=== PATIENT | female | born 1930 | race Caucasian/White ===

== ENCOUNTER → 2019-10-04 | Outpatient (CLI) | payer MEDICARE ==
[~2019-10-04] MED LIST: Aspir 8181 MG PO; B Complete1 EACH PO; DRON400T PO; ESOM20; ESOM20 PO; FISH1000 PO; LEVSOD50 PO; LEVSOD75 PO; METO25ER PO; Micro-K10 MEQ; NEBI5 PO; OMEP40CA12 PO; OTC EYE DROPS BOTHEYES; OXYB5 PO; POTCHL20ER PO; SIMV10 PO; SIMV5 PO; TRAM50 PO; WARF2 PO
== END | disposition home or self-care (01) ==
LOC: PLD 08:53 → LAB SHORT 08:53
DX: C44.311 Basal cell carcinoma of skin of nose (principal)
CPT/HCPCS: 88305

== ENCOUNTER → 2019-11-02 | Outpatient (CLI) | payer MEDICARE ==
[~2019-11-02] MED LIST changes: +ELIQUIS2.5 MG
== END | disposition home or self-care (01) ==
LOC: LAB SHORT 15:38 → PLD 15:38
DX: C44.311 Basal cell carcinoma of skin of nose (principal)
CPT/HCPCS: 88305

== ENCOUNTER 2019-12-03 | Emergency (ER) | payer MEDICARE ==
[~2019-12-03] VITALS: Ht 170.2 cm; Wt 78.9 kg
[~2019-12-03] MED LIST changes: -ELIQUIS2.5 MG
[2019-12-03] MEDS ORDERED: ELIQUIS2.5 MG (00:11)
== END 2019-12-03 00:41 | disposition home or self-care (01) ==
LOC: ER
DX: L76.22 Postprocedural hemorrhage of skin and subcutaneous tissue following other procedure (principal); I48.91 Unspecified atrial fibrillation; Z87.891 Personal history of nicotine dependence; Z88.2 Allergy status to sulfonamides; Z79.01 Long term (current) use of anticoagulants; Z79.82 Long term (current) use of aspirin; Z79.899 Other long term (current) drug therapy
CPT/HCPCS: 99282

== ENCOUNTER → 2020-02-29 | Outpatient (CLI) | payer MEDICARE ==
[~2020-02-29] MED LIST changes: +ELIQUIS2.5 MG
== END | disposition home or self-care (01) ==
LOC: LAB SHORT 11:43 → LAB 11:43
DX: I70.219 Atherosclerosis of native arteries of extremities with intermittent claudication, unspecified extremity (principal); M20.40 Other hammer toe(s) (acquired), unspecified foot; L84 Corns and callosities; G62.9 Polyneuropathy, unspecified
CPT/HCPCS: 87070; 87075; 87077; 87186; 87205

== ENCOUNTER → 2021-06-17 | Outpatient (CLI) | payer MEDICARE | END | disposition home or self-care (01) | LOC: LAB 15:53 → LAB SHORT 15:53 | DX: R82.81 Pyuria (principal) | CPT/HCPCS: 87086 ==